=== PATIENT | male | born 1950 | race Caucasian/White ===

== ENCOUNTER 2023-02-28 09:12 | Day surgery (SDC) | payer OTHER ==
[2023-02-24 13:06] VITALS: BMI 23.8
[2023-02-28 11:03] VITALS: RESP 16; TEMP 96.9
[2023-02-28 11:19] VITALS: BP 127/71; PULSE 60
== END 2023-02-28 11:27 | disposition home or self-care (01) ==
LOC: FASU-ENDO 09:12
PROVIDERS: ATTEND Internal Medicine Gastroenterology
PROC: 0DJD8ZZ Inspection of Lower Intestinal Tract, Via Natural or Artificial Opening Endoscopic (ICD-10-PCS; principal; 2023-02-28 10:39)
DX: Z12.11 Encounter for screening for malignant neoplasm of colon (principal); Z80.0 Family history of malignant neoplasm of digestive organs; K57.30 Diverticulosis of large intestine without perforation or abscess without bleeding